=== PATIENT | female | born 1950 | race African-American/Black ===

== ENCOUNTER 2018-04-04 03:26 | Observation (INO) ==
[2018-04-04 03:59] LABS: Basophils # 0.1 K/mcL (0.0-0.2); Basophils % 1.3 %; Eosinophils # 0.3 K/mcL (0.0-0.6); Eosinophils % 4.3 %; Hematocrit 44.1 % (35.3-44.9); Hemoglobin 14.3 g/dL (11.5-15.4); Immature Granulocytes % 0.4 % (0-4); Lymphocytes # 3.2 K/mcL (0.6-4.6); Lymphocytes % 47.1 %; Mean Corpuscular HGB Conc 32.4 g/dL (31.6-35.5); Mean Corpuscular Volume 83.2 fL (83.0-100.0); Mean Platelet Volume 10.1 fL (9.4-12.4); Monocytes # 0.6 K/mcL (0.0-1.3); Monocytes % 8.6 %; Neutrophils # 2.6 K/mcL (1.6-8.9); Platelet Count 301 K/mcL (140-400); Red Cell Distribution Width 14.6 % (11.5-14.5); Segmented Neutrophils % 38.3 %
--- NOTE | 2018-04-04 04:08 | Emergency Department Note ---
Disposition Clinical Impression: Chest pain Qualifiers: Chest pain type: unspecified Qualified Code(s): R07.9 - Chest pain, unspecified Disposition: Admitted As Inpatient Condition: Fair Time of Disposition: 04:40 Chest Pain HPI - General Chief Complaint: ED Chest Pain Stated Complaint: chest pain Time Seen by Provider: 04/04/18 03:39 Source: patient Mode of arrival: ambulatory Limitations: no limitations Vital Signs Reviewed: Yes Nursing Notes Reviewed: Yes - History of Present Illness HPI Narrative: 68-year-old female history of hypertension, hyperlipidemia, presents with chest pain arrests she was awake at night about 2 or 3 AM and started having left- sided chest pain and chest pressure, she says it feels like heaviness in her chest. She rates it now is 0 out of 10 but was a 5 out of 10, lasted for several minutes, it her feel somewhat short of breath radiating into her left arm, she no nausea or diaphoresis. She is no history of DVT, PE, recent mild assister travel called recumbency, no history of malignancy. She has family history of cardiac disease, she has no personal history of CVA or CAD. Pt complaint: chest pain Onset (ago): hour(s) (3) Onset: during rest Pain Location: left chest Severity: now resolved Severity scale (1-10): 1 Pain Radiation: LUE Improves with: nothing Worsens with: nothing Associated symptoms: Reports: nausea. Denies: vomiting, diaphoresis Treatments prior to arrival chest pain: none - Related Data Home Medications Medication Instructions Recorded Confirmed Cholecalciferol (D-3) [Vitamin D] 1,000 unit PO DAILY 01/29/18 01/29/18 Losartan Potassium [Cozaar] 50 mg PO DAILY 01/29/18 01/29/18 Mv-Mn/FA/Vit K/Lycop/Lut/Coq10 1 tab PO DAILY 01/29/18 01/29/18 [Daily Multivitamin Capsule] [place]-3/Dha/Epa/Fish Oil [Fish Oil 1 tab PO DAILY 01/29/18 01/29/18 1,000 mg Softgel] Pravastatin Sodium [Pravachol] 40 mg PO HS 01/29/18 01/29/18 Previous Rx's Medication Instructions Recorded HYDROcodone/Acet 7.5/325 mg [[place] 1 tab PO Q6H PRN 3 Days #12 tablet 01/29/18 7.5-325 mg] Allergies Allergy/AdvReac Type Severity Reaction Status Date / Time simvastatin AdvReac Muscle Pain Verified 04/04/18 03:30 All systems ED: reviewed and negative except as stated. Review of Systems: As Per HPI Constitutional: Denies: fever, chills Eyes: Denies: eye pain ENT ED: Denies: ear pain Cardiovascular: Reports: chest pain. Denies: palpitations Respiratory: Denies: cough, dyspnea Gastrointestinal: Denies: abdominal pain, nausea Genitourinary: Denies: urgency Musculoskeletal: Denies: back pain, neck pain Integumentary: Denies: rash Neurological: Denies: headache Psychiatric: Denies: anxiety Endocrine: Denies: fatigue Hematological/Lymphatic: Denies: easy bleeding Allergic/Immunologic: Denies: facial swelling Chest Pain PMH - Past Medical History Medical history: Reports: hyperlipidemia, hypertension Surgical history: Reports: hysterectomy Psychiatric history: Reports: no psych history - Social History Smoking Status: Never smoker Alcohol use: Reports: occasionally Drug use: Reports: none Physical Exam Constitutional: Middle-aged female appears in no acute distress Neck: normal inspection, neck is supple, no JVD Resp: normal chest inspection, CTA bilaterally, no resp distress, no wheezes/ rales/rhonchi CV: RRR, no murmurs/gallops/rubs, S1 and S2 heard Extremity: +2 bilateral radial and posterial tibial pulses, no pedal edema GI: normal inspection, Soft, NTND, no peritoneal signs, no palpable abdominal aortic aneurysm Back: normal inspection, no tenderness to palpation Neuro: A&O3, no gross motor or sensory deficits bilaterally MSK: normal inspection, bilateral UE and LE with normal ROM Skin: No rashes, skin warm, dry, intact Course Course Narrative: 68-year-old female with chest pain hypertension dyslipidemia heart score 4, given concerns and comorbidities radiation of her symptoms and her left arm, they are resolved at this time we will give aspirin, plan is for admission for - Reevaluation(s) Reevaluation #1: Patient noted for chest pain rule out, cardiac enzymes are negative, patient is hemodynamic stable after aspirin no return of chest pain, plans for admission and stress test possibly trop trending given high heart score. Time: 05:16 Vital Signs Temperature 97.7 F 04/04/18 03:29 Pulse Rate 102 04/04/18 03:29 Respiratory Rate 16 04/04/18 03:29 Blood Pressure 155/80 04/04/18 03:29 O2 Sat by Pulse Oximetry 97 04/04/18 03:29 Temperature 97.7 F 04/04/18 03:29 Pulse Rate 98 04/04/18 05:01 Respiratory Rate 18 04/04/18 05:01 Blood Pressure 130/88 04/04/18 05:01 O2 Sat by Pulse Oximetry 98 04/04/18 05:01 Oxygen Delivery Oxygen Delivery Room Air Chest Pain - Differential Diagnosis Likely: fracture of rib, pneumothorax, stable angina, atypical chest pain - Medical Records Medical records reviewed: Yes I reviewed the patient's medical records. - Lab Data Lab results reviewed: Yes I reviewed the patient's lab results. Result diagrams: 04/04/18 03:40 04/04/18 03:40 Lab Results 04/04/18 04/04/18 Range/Units 03:40 03:40 WBC 6.7 (4.3-11.1) K/mcL RBC 5.30 H (3.82-4.97) M/mcL Hgb 14.3 (11.5-15.4) g/dL Hct 44.1 (35.3-44.9) % MCV 83.2 (83.0-100.0) fL MCH 27.0 L (28.0-33.3) pg MCHC 32.4 (31.6-35.5) g/dL RDW 14.6 H (11.5-14.5) % Plt Count 301 (140-400) K/mcL MPV 10.1 (9.4-12.4) fL Immature Gran % 0.4 (0-4) % Seg Neutrophils % 38.3 % Lymphocytes % 47.1 % Monocytes % 8.6 % Eosinophils % 4.3 % Basophils % 1.3 % Neutrophils # 2.6 (1.6-8.9) K/mcL Lymphocytes # 3.2 (0.6-4.6) K/mcL Monocytes # 0.6 (0.0-1.3) K/mcL Eosinophils # 0.3 (0.0-0.6) K/mcL Basophils # 0.1 (0.0-0.2) K/mcL Sodium 139 (136-145) mEq/L Potassium 3.6 (3.5-5.1) mEq/L Chloride 107 (98-107) mEq/L Carbon Dioxide 24 (23-29) mEq/L BUN 14 (8-23) mg/dL Creatinine 1.07 (0.60-1.20) mg/dL Est GFR ( Amer) > 60 (> 60) Est GFR (Non-Af Amer) 51 L (> 60) BUN/Creatinine Ratio 13 (6-26) Glucose 142 H (70-105) mg/dL Calculated Osmolality 291 (280-300) Calcium 9.3 (8.6-10.3) mg/dL Troponin I < 0.03 (< 0.04) ng/mL - Radiology Data Radiology results reviewed: Yes I reviewed the patient's radiology results. Chest X-Ray 04/04/18 03:33 IMPRESSION: Negative portable chest. D/ / Anam Rico MD / Anam Rico MD Interpreting Provider: Anam Rico MD - EKG Data EKG attestation: Yes I reviewed and interpreted this EKG. EKG shows normal: sinus rhythm Rate: tachycardia (10 2 bpm NE 164 QRS [address] segment elevations or depressions, tachycardia sinus) Rhythm: NSR Heart Score - Score History: Slightly Suspicious EKG: Non Specific repolarisation Disturbance Age: Greater than 65 Risk Factors: 1-2 risk factors Troponin: Less than normal limit HEART Score Total: 4
[2018-04-04] MEDS ORDERED: Aspirin 81 MG TAB.CHEW PO ONE (04:11)
[2018-04-04 04:22] LABS: BUN/Creatinine Ratio 13 (6-26); Blood Urea Nitrogen 14 mg/dL (8-23); Calcium 9.3 mg/dL (8.6-10.3); Carbon Dioxide 24 mEq/L (23-29); Chloride 107 mEq/L (98-107); Glucose 142 mg/dL (70-105); Osmolality,Calculated 291 (280-300); Potassium 3.6 mEq/L (3.5-5.1); Sodium 139 mEq/L (136-145); Troponin I < 0.03 ng/mL (< 0.04); eGFR For African Americans > 60 (> 60); eGFR For Non-African Americans 51 (> 60)
--- NOTE | 2018-04-04 05:24 | Emergency Department Note ---
Disposition Clinical Impression: Chest pain Qualifiers: Chest pain type: unspecified Qualified Code(s): R07.9 - Chest pain, unspecified Disposition: Admitted As Inpatient Condition: Fair General Adult HPI - General Chief complaint: ED Chest Pain Stated complaint: chest pain Time Seen by Provider: 04/04/18 03:39 Source: patient Mode of arrival: ambulatory Limitations: no limitations - History of Present Illness Pain Scale: 1 - Related Data Home Medications Medication Instructions Recorded Confirmed Cholecalciferol (D-3) [Vitamin D] 1,000 unit PO DAILY 01/29/18 01/29/18 Losartan Potassium [Cozaar] 50 mg PO DAILY 01/29/18 01/29/18 Mv-Mn/FA/Vit K/Lycop/Lut/Coq10 1 tab PO DAILY 01/29/18 01/29/18 [Daily Multivitamin Capsule] [place]-3/Dha/Epa/Fish Oil [Fish Oil 1 tab PO DAILY 01/29/18 01/29/18 1,000 mg Softgel] Pravastatin Sodium [Pravachol] 40 mg PO HS 01/29/18 01/29/18 Previous Rx's Medication Instructions Recorded HYDROcodone/Acet 7.5/325 mg [[place] 1 tab PO Q6H PRN 3 Days #12 tablet 01/29/18 7.5-325 mg] Allergies Allergy/AdvReac Type Severity Reaction Status Date / Time simvastatin AdvReac Muscle Pain Verified 04/04/18 03:30 Constitutional: Denies: fever, chills Eyes: Denies: eye pain ENT ED: Denies: ear pain Cardiovascular: Reports: chest pain. Denies: palpitations Respiratory: Denies: cough, dyspnea Gastrointestinal: Denies: abdominal pain, nausea Genitourinary: Denies: urgency Musculoskeletal: Denies: back pain, neck pain Integumentary: Denies: rash Neurological: Denies: headache Psychiatric: Denies: anxiety Endocrine: Denies: fatigue Hematological/Lymphatic: Denies: easy bleeding Allergic/Immunologic: Denies: facial swelling Past Medical History - Past Medical History Medical history: Reports: hyperlipidemia, hypertension Surgical history: Reports: hysterectomy Psychiatric history: Reports: no psych history - Social History Smoking Status: Never smoker Smokeless Tobacco Status: No Alcohol use: Reports: occasionally Drug use: Reports: none Physical Exam - General Limitations: no limitations Course - Reevaluation(s) Reevaluation #1: Attestation note I examined this patient and my medical decision-making was reviewed with the emergency medicine resident. I agree with the documented findings, disposition and treatment plan as described except to the extent set forth below. Patient seen with emergency medicine resident Parviz Reed, Please see a copy of his note for details of the H&P, ED evaluation, management and disposition. I have independently evaluated the patient and confirmed appropriate portions of the history and physical exam. Briefly: 68-year-old female history of coronary artery disease comes in with chest pain or discomfort. Symptoms have resolved initial troponin negative EKG shows no acute ischemic changes when compared to prior EKG. Patient be admitted for chest pain acute coronary syndrome. Patient got aspirin and is pain free at this time. Admission disposition pending Time: 05:23 Vital Signs Temperature 97.7 F 04/04/18 03:29 Pulse Rate 102 04/04/18 03:29 Respiratory Rate 16 04/04/18 03:29 Blood Pressure 155/80 04/04/18 03:29 O2 Sat by Pulse Oximetry 97 04/04/18 03:29 Temperature 97.7 F 04/04/18 03:29 Pulse Rate 98 04/04/18 05:01 Respiratory Rate 18 04/04/18 05:01 Blood Pressure 130/88 04/04/18 05:01 O2 Sat by Pulse Oximetry 98 04/04/18 05:01 Oxygen Delivery Oxygen Delivery Room Air Medical Decision Making - Lab Data Result diagrams: 04/04/18 03:40 04/04/18 03:40 Lab Results 04/04/18 04/04/18 Range/Units 03:40 03:40 WBC 6.7 (4.3-11.1) K/mcL RBC 5.30 H (3.82-4.97) M/mcL Hgb 14.3 (11.5-15.4) g/dL Hct 44.1 (35.3-44.9) % MCV 83.2 (83.0-100.0) fL MCH 27.0 L (28.0-33.3) pg MCHC 32.4 (31.6-35.5) g/dL RDW 14.6 H (11.5-14.5) % Plt Count 301 (140-400) K/mcL MPV 10.1 (9.4-12.4) fL Immature Gran % 0.4 (0-4) % Seg Neutrophils % 38.3 % Lymphocytes % 47.1 % Monocytes % 8.6 % Eosinophils % 4.3 % Basophils % 1.3 % Neutrophils # 2.6 (1.6-8.9) K/mcL Lymphocytes # 3.2 (0.6-4.6) K/mcL Monocytes # 0.6 (0.0-1.3) K/mcL Eosinophils # 0.3 (0.0-0.6) K/mcL Basophils # 0.1 (0.0-0.2) K/mcL Sodium 139 (136-145) mEq/L Potassium 3.6 (3.5-5.1) mEq/L Chloride 107 (98-107) mEq/L Carbon Dioxide 24 (23-29) mEq/L BUN 14 (8-23) mg/dL Creatinine 1.07 (0.60-1.20) mg/dL Est GFR ( Amer) > 60 (> 60) Est GFR (Non-Af Amer) 51 L (> 60) BUN/Creatinine Ratio 13 (6-26) Glucose 142 H (70-105) mg/dL Calculated Osmolality 291 (280-300) Calcium 9.3 (8.6-10.3) mg/dL Troponin I < 0.03 (< 0.04) ng/mL
[2018-04-04] MEDS ORDERED: Ondansetron ODT 4 MG TAB.RAPDIS SL PRN (07:39)
[2018-04-04] MEDS ORDERED: Naloxone 0.4 MG/ML INJ IVP PRN (07:39)
[2018-04-04] MEDS ORDERED: *HR* HYDROcodone/Acet 5/325 mg TABLET PO PRN (07:39)
[2018-04-04] MEDS ORDERED: *HR* Promethazine 25 MG/ML VIAL IVP PRN (07:39)
[2018-04-04] MEDS ORDERED: Acetaminophen 325 MG TABLET PO PRN (07:39)
--- NOTE | 2018-04-04 08:37 | Internal Med History&Physical ---
<Charity Nazario - Last Filed: 04/04/18 08:34> Date of Encounter: 04/04/18 Time of Encounter: 08:35 Internal Medicine - H&P: HPI Chief complaint: Chest Pain Admitted From: Emergency Dept History of present illness: Ms. Young is a 68 year old female with significant past medical history of hypertension and hyperlipidemia that was admitted for chest pain. Patient states that she was lying in bed when she felt a twinge in her substernal chest area. It radiated into her back. Denies nausea, vomiting or diaphoresis with symptoms. Patient states this has happened previously and she took a rolaid and the symptoms resolved. She has never been worked up for any cardiac complaint in the past. Denies any echo or cath in the past. Takes daily baby aspirin but no anticoagulation. Does provide strong family history of cardiac disease in her father at age 40. Patient denies chest pain at this time. Past Med Surg Social Fam HX - Past Medical History Medical history: hyperlipidemia, hypertension Psychiatric history: no psych history - Past Surgical History Surgical History: hysterectomy Additional surgical history: lymph nodes removed under arm, cornea transplant, hemorrhoid surgery, right shoulder replacement - Social History Smoking Status: Never smoker Smokeless Tobacco Status: No Alcohol use: occasionally Drug use: none Internal Medicine - H&P: Meds Cholecalciferol (D-3) [Vitamin D] 1,000 unit PO DAILY 01/29/18 [History] Losartan Potassium [Cozaar] 50 mg PO DAILY 01/29/18 [History] Mv-Mn/FA/Vit K/Lycop/Lut/Coq10 [Daily Multivitamin Capsule] 1 tab PO DAILY 01/29 [History] [place]-3/Dha/Epa/Fish Oil [Fish Oil 1,000 mg Softgel] 1 tab PO DAILY 01/29/18 [ History] Pravastatin Sodium [Pravachol] 40 mg PO HS 01/29/18 [History] 3 Allergy/AdvReac Type Severity Reaction Status Date / Time simvastatin AdvReac Muscle Pain Verified 04/04/18 03:30 All Systems PM: A 10-system review of systems was performed and is negative for pertinent findings except as documented above in the HPI. - Constitutional Constitutional: no fever(s), no falls, no weakness - EENT Eyes: as per HPI Ears: as per HPI Nose, mouth and throat: as per HPI - Cardiovascular Cardiovascular ROS IM: chest pain, no diaphoresis, no dyspnea on exertion, no edema, no irregular heart rhythm, no lightheadedness, no palpitations, no syncope - Respiratory Respiratory: no cough, no dyspnea, no hemoptysis - Gastrointestinal Gastrointestinal: no abdominal pain, no nausea, no vomiting - Neurological Neurological ROS: as per HPI - Constitutional Vitals: Temp Pulse Resp BP Pulse Ox 97.9 F 89 14 134/74 96 04/04/18 06:27 04/04/18 06:27 04/04/18 06:27 04/04/18 06:27 04/04/18 06:27 General appearance: Present: A&O X 3, pleasant, no acute distress, answers questions appropriately - Head Head exam: Present: atraumatic, normocephalic - Respiratory Respiratory exam: Present: CTAB. Absent: accessory muscle use, rales, rhonchi, wheezes - Cardiovascular Cardiovascular exam: Present: RRR, +S1, +S2. Absent: diastolic murmur, gallop, rubs, systolic murmur - GI/Abdominal GI/Abdominal exam: Present: normal bowel sounds, soft, no peritoneal signs. Absent: distended, tenderness - Extremities Exam Extremities exam: Present: warm, radial pulses palpable and symmetrical. Absent : calf tenderness, cyanotic, pedal edema - Neurological Exam Neurological exam: Present: oriented X3, no focal deficits. Absent: facial droop, speech deficit Internal Med - H&P Results - Labs CBC & Chem 7: 04/04/18 03:40 04/04/18 03:40 - Assessment and plan (1) Chest pain Current Visit: Yes Status: Acute Assessment and plan: Patient denies active chest pain at this time. Ordered serial troponins and stress test Patient NPO at this time Further recommendations pending stress test result Qualifiers: Chest pain type: unspecified Qualified Code(s): R07.9 - Chest pain, unspecified (2) Hypertension Current Visit: Yes Status: Chronic Assessment and plan: Blood pressure well controlled Continue home medications Qualifiers: Hypertension type: unspecified Qualified Code(s): I10 - Essential (primary ) hypertension (3) Hyperlipidemia Current Visit: Yes Status: Chronic Assessment and plan: Lipid panel ordered for AM Continue home medications Qualifiers: Hyperlipidemia type: unspecified Qualified Code(s): E78.5 - Hyperlipidemia , unspecified - Time Spent With Patient Total time spent is greater than 50% in coordination of care (as documented) at patient's floor/unit and/or counseling patient: <Peterson Mcconnell - Last Filed: 04/04/18 14:10> Date of Encounter: 04/04/18 Internal Medicine - H&P: HPI History of present illness: Ms. Young is a 68 year old female All Systems PM: A 10-system review of systems was performed and is negative for pertinent findings except as documented above in the HPI. - Constitutional Vitals: Temp Pulse Resp BP Pulse Ox 98.1 F 82 14 151/84 97 04/04/18 10:45 04/04/18 10:45 04/04/18 10:45 04/04/18 10:45 04/04/18 10:45 Internal Med - H&P Results - Labs CBC & Chem 7: 04/04/18 03:40 04/04/18 03:40 Labs: Cardiac Enzymes 04/04/18 Range/Units 09:54 Troponin I 0.04 H* (< 0.04) ng/mL - Attending Attestation I examined this patient and my medical decision-making was reviewed with the Resident Physician Dr. Nazario. I agree with the documented findings, disposition and treatment plan as described except to the extent set forth below. Ms. Young is a 68 year old female with significant past medical history of hypertension and hyperlipidemia pt presented to ER with CP. She denied any active CP now. resting comfortably. She does have significant FH with father had DE in his 40's and all the sibling have DE too. Gen: A, A, O x 3 Chest: Diminished BS b/l Heart : S1S2 + RRR No murmurs a/p 1. Acute CP on tele check serial troponin Reviewed EKG- NSR, No ST T changes will get exercise stress test in AM since pt is high risk for ACS - Time Spent With Patient Total time spent is greater than 50% in coordination of care (as documented) at patient's floor/unit and/or counseling patient:
[2018-04-04 10:31] LABS: Chol/HDL Ratio 2.6 (0-4.9)
[2018-04-05 05:04] LABS: Basophils # 0.1 K/mcL (0.0-0.2); Basophils % 1.4 %; Eosinophils # 0.2 K/mcL (0.0-0.6); Eosinophils % 4.5 %; Hematocrit 39.5 % (35.3-44.9); Hemoglobin 12.6 g/dL (11.5-15.4); Immature Granulocytes % 0.4 % (0-4); Lymphocytes # 1.9 K/mcL (0.6-4.6); Mean Corpuscular HGB Conc 31.9 g/dL (31.6-35.5); Mean Corpuscular Hemoglobin 26.3 pg (28.0-33.3); Mean Corpuscular Volume 82.3 fL (83.0-100.0); Monocytes # 0.4 K/mcL (0.0-1.3); Monocytes % 9.1 %; Neutrophils # 2.2 K/mcL (1.6-8.9); Platelet Count 276 K/mcL (140-400); Red Cell Distribution Width 14.6 % (11.5-14.5); Segmented Neutrophils % 45.6 %
[2018-04-05 05:23] LABS: BUN/Creatinine Ratio 13 (6-26); Blood Urea Nitrogen 12 mg/dL (8-23); Calcium 9.1 mg/dL (8.6-10.3); Carbon Dioxide 23 mEq/L (23-29); Chloride 109 mEq/L (98-107); Glucose 113 mg/dL (70-105); Osmolality,Calculated 293 (280-300); Potassium 4.1 mEq/L (3.5-5.1); Sodium 141 mEq/L (136-145); eGFR For African Americans > 60 (> 60); eGFR For Non-African Americans > 60 (> 60)
[2018-04-05] MEDS ORDERED: Multivit/Ca/Min/Fe/FA 1 TAB TABLET PO SCH (09:00)
[2018-04-05] MEDS ORDERED: NON-FORMULARY MEDICATION 1 EACH EACH (Omega-3/Dha/Epa/Fish Oil [Fish Oil 1,000 Mg Softgel] PO SCH (09:00)
[2018-04-05] MEDS ORDERED: Cholecalciferol (D-3) 1,000 UNIT TABLET PO SCH (09:00)
[2018-04-05 11:41] VITALS: BP 137/79
--- NOTE | 2018-04-05 12:49 | Discharge Summary ---
<OlvinErwin Trent - Last Filed: 04/05/18 12:40> - NOTES TO OUTPATIENT PROVIDER Notes to Outpatient Provider: Cardiac stress testing was negative, given the patient's elevated LDL will increase her pravastatin to 80mg Orders not resulted at time of discharge: Pending orders 04/04/18 16:22 NM arash perf SPECT multi [NM] Routine Date of Encounter: 04/05/18 Time of Encounter: 12:40 - Discharge Diagnosis (1) Chest pain Priority: Primary Status: Resolved Qualifiers: Chest pain type: unspecified Qualified Code(s): R07.9 - Chest pain, unspecified (2) Hypertension Priority: Secondary Status: Chronic Qualifiers: Hypertension type: unspecified Qualified Code(s): I10 - Essential (primary ) hypertension (3) Hyperlipidemia Priority: Secondary Status: Chronic Qualifiers: Hyperlipidemia type: unspecified Qualified Code(s): E78.5 - Hyperlipidemia , unspecified Hospital course: Ms. Young is a 68 year old female with history of hypertension and hyperlipidemia presented with chest pain. She describes this as a sharp stabbing pain that started at the beginning of her chest and radiating to her back. She had this intermittently in the past. It is not associated with activity and patient did not have associated symptoms his shortness of breath diaphoresis nausea, vomiting. Patient underwent cardiac stress test that was negative. Patient was found to have an increased LDL so we will increase her statin otherwise patient will be discharged home in stable condition. Discharge discussed with: patient, family - Time Spent with Patient Total time spent providing and/or coordinating discharge services: Less than 30 minutes - Discharge Medications Prescriptions: Pravastatin Sodium [Pravachol] 80 mg PO HS #30 tablet Home Medications: Cholecalciferol (D-3) [Vitamin D] 1,000 unit PO DAILY 01/29/18 [History] Losartan Potassium [Cozaar] 50 mg PO DAILY 01/29/18 [History] Mv-Mn/FA/Vit K/Lycop/Lut/Coq10 [Daily Multivitamin Capsule] 1 tab PO DAILY 01/29 [History] [place]-3/Dha/Epa/Fish Oil [Fish Oil 1,000 mg Softgel] 1 tab PO DAILY 01/29/18 [ History] Pravastatin Sodium [Pravachol] 80 mg PO HS #30 tablet 04/05/18 [Rx] Allergies/Adverse Reactions: 3 Allergy/AdvReac Type Severity Reaction Status Date / Time simvastatin AdvReac Muscle Pain Verified 04/04/18 03:30 Date of admission: 04/04/18 05:14 Primary care physician: Nadine James DO Discharging clinician: Erwin Bah Anticipated date of discharge: 04/05/18 - Constitutional Vitals: Temp Pulse Resp BP Pulse Ox 97.7 F 76 18 137/79 97 04/05/18 11:21 04/05/18 11:21 04/05/18 11:21 04/05/18 11:21 04/05/18 11:21 General appearance: Present: A&O X 3, pleasant, no acute distress, answers questions appropriately - Respiratory Respiratory exam: Present: CTAB. Absent: rales, rhonchi, wheezes - Cardiovascular Cardiovascular exam: Present: RRR. Absent: gallop, rubs, systolic murmur - GI/Abdominal GI/Abdominal exam: Present: normal bowel sounds, soft. Absent: distended, tenderness - Extremities Exam Extremities exam: Present: warm. Absent: pedal edema, tenderness - Neurological Exam Neurological exam: Present: alert, CN II-XII intact, oriented X3, no focal deficits - Patient Status Disposition: Home, Self-Care Condition: Fair Functional capacity at discharge: independent ambulation Overall status at discharge: patient is progressing back to baseline - Discharge Instructions Instructions: Chest Pain (DC), Low Fat Diet (DC), Cholesterol and Your Health ( GEN), Chronic Hypertension (DC), Hyperlipidemia (DC), Heart Healthy Diet, Raw Juice Weigher (GEN) Follow Up With: Nadine James DO [Primary Care Provider] - (1 week, F/U REQUESTED) Additional Instructions: Please follow-up with your primary care physician within one week. Please resume your home medications. Please increase her pravastatin to 80 mg nightly. Please return for any new or worsening symptoms. - Diet and Activity Activity: increase activity as tolerated Diet: advance to your usual diet <Peterson Mcconnell - Last Filed: 04/05/18 14:59> Orders not resulted at time of discharge: Pending orders 04/04/18 16:22 NM arash perf SPECT multi [NM] Routine Date of Encounter: 04/05/18 - Discharge Diagnosis (1) Chest pain Status: Resolved Qualifiers: Chest pain type: unspecified Qualified Code(s): R07.9 - Chest pain, unspecified (2) Hypertension Status: Chronic Qualifiers: Hypertension type: unspecified Qualified Code(s): I10 - Essential (primary ) hypertension (3) Hyperlipidemia Status: Chronic Qualifiers: Hyperlipidemia type: unspecified Qualified Code(s): E78.5 - Hyperlipidemia , unspecified Hospital course: Ms. Young is a 68 year old female - Time Spent with Patient Total time spent providing and/or coordinating discharge services: Date of admission: 04/04/18 05:14 Primary care physician: Nadine James DO - Constitutional Vitals: Temp Pulse Resp BP Pulse Ox 97.7 F 76 18 137/79 97 04/05/18 11:21 04/05/18 11:21 04/05/18 11:21 04/05/18 11:21 04/05/18 11:21 - Attending Attestation I examined this patient and my medical decision-making was reviewed with the Resident Physician Dr. Bah. I agree with the documented findings, disposition and treatment plan as described except to the extent set forth below. Ms. Young is a 68 year old female with significant past medical history of hypertension and hyperlipidemia pt presented to ER with CP. She denied any active CP now. resting comfortably. Gen: A, A, O x 3 Chest: Diminished BS b/l Heart : S1S2 + RRR No murmurs a/p 1. Acute CP on tele stable and negative serial troponin Reviewed EKG- NSR, No ST T changes Reviewed Stress test which came back as negative for ischemia so will d/c her home today Her LDL -110, so Inc Pravastatin to 80mg
--- NOTE | 2018-04-07 06:49 | Electrocardiograph Report ---
[address] [address] Test Date: 2018-04-04 Pat Name: Agnieszka Young Department: 103 Room: [facility] Gender: F Fabric Machine Operator: DEMOND : 1950 Requested By: Glenn Guajardo Order Number: [id number] Reading MD: Joshua Ojeda Measurements Intervals [place] Rate: 102 P: 64 AR: 164 QRS: 39 QRSD: 70 T: 27 QT: 329 QTc: 388 Interpretive Statements SINUS TACHYCARDIA BASELINE ARTIFACT Electronically Signed On 04-07-2018 6:47:46 EDT by Joshua Ojeda
== END 2018-04-05 13:15 | disposition home or self-care (01) ==
LOC: 3NENU 03:26 → EMEROO 03:26 → SUATTDRO 05:14 → 3NENU 05:45
PROVIDERS: ADMIT Internal Medicine; ATTEND Family Medicine